=== PATIENT | male | born 1985 | race Caucasian/White ===

== ENCOUNTER 2019-07-20 08:04 | Outpatient (CLI) | payer OTHER ==
--- NOTE | 2019-07-20 15:18 | MRI Report ---
Reason: WRIST EPL TENDONITIS Procedure Date: 07/20/2019 Accession Number: [id number] / [id number] Procedure: MRI - Wrist RT W/O CPT Code: Final Report FULL RESULT: EXAM: RIGHT WRIST MRI WITHOUT CONTRAST. EXAM DATE: 07/20/2019 09:12 AM. CLINICAL HISTORY: Extensor pollicis longus wrist tendinitis. Pain for 6 months. COMPARISON: None. TECHNIQUE: Multiplanar, multisequence T1-weighted and fluid-sensitive sequences of the wrist without contrast. Other: None. FINDINGS: Bones: No fractures. Mild edema is in Sadia's tubercle in the distal radius. Marrow edema is in the radial side of the distal scaphoid. There is a cyst in the capitate. Cartilage: The articular cartilage is unremarkable. The triangular fibrocartilage complex is unremarkable. Ligaments: The scapholunate and lunotriquetral ligaments are intact. The visualized other intrinsic, extrinsic and collateral ligaments are unremarkable. Tendons: A longitudinal split tear of the extensor carpi ulnaris tendon at the ulnar styloid can be seen on series 401, image 15. Extensor pollicis longus tendon has multifocal longitudinal split tearing near the Sadia's tubercle (series 501, image 10). The tendon is thickened distal to Sadia's tubercle and has increased T2 signal within it. There is a moderate amount of fluid within its tendon sheath. A small amount of fluid is also in the extensor compartment 2 and 4 tendon sheaths. The other visualized flexor and extensor tendons are unremarkable. Musculature: No edema or fatty atrophy. Other: The contents of the carpal tunnel, including the median nerve, are unremarkable. Guyons canal is unremarkable. No ganglion cysts. No joint effusions. The subcutaneous tissues are unremarkable. IMPRESSION: 1. Severe tendinosis, multifocal longitudinal split tearing, and moderate tenosynovitis of the extensor pollicis longus tendon. There is reactive marrow edema in the adjacent Sadia's tubercle. 2. Longitudinal split tear of the extensor carpi ulnaris tendon. 3. Mild tenosynovitis of the extensor compartment 2 and 4 tendon sheaths. RADIA
== END 2019-07-20 08:05 | disposition home or self-care (01) ==
LOC: DI 08:04
PROVIDERS: ATTEND Orthopaedic Surgery
DX: S66.811A Strain of other specified muscles, fascia and tendons at wrist and hand level, right hand, initial encounter (principal); M65.88 Other synovitis and tenosynovitis, other site

== ENCOUNTER 2019-09-10 07:47 | Day surgery (SDC) | payer OTHER ==
[~2019-09-10 07:47] MED LIST: BUPIVACAINE 0.25% PF 30 ML VIAL ONE
[2019-09-10] MEDS ORDERED: LACTATED RINGERS 1,000 ML IV ONE ×2 (07:52→11:53)
[2019-09-10] MEDS ORDERED: CEFAZOLIN SODIUM IN 0.9 % NACL 2 GM/100 ML BAG IV ONE (08:05)
[2019-09-10] MEDS ORDERED: BUPIVACAINE 0.25% PF 30 ML VIAL ONE (09:03)
--- NOTE | 2019-09-10 09:16 | ANESTHESIA ---
Pre-Anesthesia VS, & Labs - Diagnosis R EPL tendinosis - Procedure R extensor pollicis longus release Vital Signs: Temp Pulse Resp BP Pulse Ox 36.6 C 78 12 140/86 H 98 09/10/19 07:52 09/10/19 07:52 09/10/19 07:52 09/10/19 07:52 09/10/19 07:52 Height 5 ft 9 in Weight (kg) 82.1 kg - NPO >8 hours Last Fluid Intake: sips H20 0600 Home Medications and Allergies Home Medications: Ambulatory Orders Ascorbic Acid [Vitamin C] 500 mg PO DAILY 08/31/19 Turmeric 400 mg PO DAILY 08/31/19 Yeast,Dried (S. Cerevisiae) [Glass's Yeast] 680 mg PO DAILY 08/31/19 Ascorbic Acid [Vitamin C] 500 mg PO DAILY 08/31/19 Turmeric 400 mg PO DAILY 08/31/19 Yeast,Dried (S. Cerevisiae) [Glass's Yeast] 680 mg PO DAILY 08/31/19 Allergies/Adverse Reactions: Allergies Allergy/AdvReac Type Severity Reaction Status Date / Time No Known Drug Allergies Allergy Verified 08/31/19 09:05 Anes History & Medical History - Anesthetic History Anesthesia Complications: reports: No previous complications (no previous surgery) Family history of Anesthesia Complications: Denies Family history of Malignant Hyperthermia: Denies - Medical History Cardiovascular: reports: None, Hypertension (remote hx, no meds, resolved) Pulmonary: reports: Sleep apnea, CPAP use Gastrointestinal: reports: None Urinary: reports: None Musculoskeletal: reports: Other Endocrine/Autoimmune: reports: None Skin: reports: None Psychosocial: reports: Alcohol Exam General: Alert, Oriented x3, Cooperative Dental: WNL Mouth Openin Fingerbreadth Neck Mobility: Normal Mallampati classification: II Thyromental Distance: greater than 6 cm Respiratory: Lungs clear, Normal breath sounds, No respiratory distress Cardiovascular: Regular rate Mental/Cognitive Status: Alert/Oriented X3, Normal for patient Cognitive Status: Within normal limits Plan Anesthesia Type: General Consent for Procedure(s) Verified and Reviewed: Yes Code Status: Attempt Resuscitation ASA classification: 2-Mild systemic disease Is this case an emergency?: No
[2019-09-10] MEDS ORDERED: PROPOFOL 200 MG/20 ML VIAL IVP ONE (09:47)
[2019-09-10] MEDS ORDERED: ACETAMINOPHEN 1,000 MG/100 ML 100 ML IV ONE (09:47)
[2019-09-10] MEDS ORDERED: MIDAZOLAM 2 MG/2 ML VIAL IVP ONE (09:47)
[2019-09-10] MEDS ORDERED: fentaNYL 100 MCG/2 ML VIAL IVP ONE (09:47)
[2019-09-10] MEDS ORDERED: LIDOCAINE-MPF 2% 5 ML VIAL IM ONE (09:47)
[2019-09-10] MEDS ORDERED: DEXAMETHASONE 4 MG/ML VIAL IVP ONE (09:47)
[2019-09-10] MEDS ORDERED: ONDANSETRON 4 MG/2 ML VIAL IVP ONE (09:47)
[2019-09-10] MEDS ORDERED: BUPIVACAINE 0.25% PF 30 ML VIAL SUBQ ONE (10:35)
[2019-09-10] MEDS ORDERED: oxyCODONE 5 MG TABLET PO PRN (11:05)
[2019-09-10] MEDS ORDERED: ONDANSETRON 4 MG/2 ML VIAL IVP PRN (11:05)
--- NOTE | 2019-09-10 11:12 | OPERATIVE REPORT ---
Operative Report - Other Other Information/Narrative: Date of Surgery: 10 September 2019 Pre-Op Diagnosis: Right extensor pollicis longus tendinosis with partial tears Procedure: Right extensor pollicis longus decompression with transposition Postop Diagnosis: Same Primary Surgeon: Reilly Lacy Secondary Surgeon: None Complications: None Tourniquet Time: 38 minutes EBL: 5 cc Implants: None Postoperative Protocol: Full range of motion of the thumb and wrist immediately. No firm gripping for 2 weeks. No weapons duty for 6 weeks. 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 Surgery was indicated to prevent tendon rupture and allow for symptom improvement. The risks, benefits, and alternatives were discussed. Risks include pain, bleeding, infection, damage to nearby structures, numbness, lack of symptom relief, implant complications, nonunion, need for further surgery, DVT, PE, stroke, and . Written consent was obtained. Procedure in Detail: The patient was met in the pre-operative hold area on the day of the procedure. The operative extremity was signed and questions were answered. The patient was brought to the operating room and a general anesthe tic was administered. Supine position was used and all bony prominences were padded. Standard prepping and draping was performed. A time out confirmed patient identification, laterality, procedure, allergies, antibiotics, and images. An Esmarch was used to exsanguinate the limb and the tourniquet was elevated to 250 mmHg. A 5 cm incision was made over the course of the extensor pollicis longus. Bipolar was used to obtain hemostasis. Blunt dissection was used looking for branches of the superficial branch of the radial nerve. No branches were seen. Veins were protected. The extensor retinaculum was identified and I opened the fourth compartment to show no significant tendinitis or tendinosis. I then opened to the third compartment and found extensor pollicis longus to be thickened and partially tore at Sadia's tubercle. I then released the fascia proximally to allow for good transposition and released it distally. EPL was then brought out from behind the third and was tension free. I then irrigated copiously and closed the extensor retinaculum over the fourth. I then closed the third compartment as well to prevent EPL from finding its way back behind Sadia's tubercle. Excess tissue was debrided. The incision was closed with 2-0 Vicryl in the dermis and running Monocryl in the skin. Mastisol and Steri-Strips were applied. 20 cc of local anesthetic was placed around the incision.
[2019-09-10] MEDS: HYDROmorphone 0.5 MG/0.5 ML SYRINGE ONE ×2 (11:19→11:35)
[2019-09-10] MEDS ORDERED: HYDROmorphone 0.5 MG/0.5 ML SYRINGE ONE (11:37)
[2019-09-10] MEDS ORDERED: oxyCODONE 5 MG TABLET ONE (12:03)
[2019-09-10 12:09] VITALS: BP 124/81
== END 2019-09-10 07:48 | disposition home or self-care (01) ==
LOC: SDS 07:47
PROVIDERS: ATTEND Orthopaedic Surgery
PROC: 0LX50ZZ Transfer Right Lower Arm and Wrist Tendon, Open Approach (ICD-10-PCS; principal; 2019-09-10 09:15)
DX: S56.511A Strain of other extensor muscle, fascia and tendon at forearm level, right arm, initial encounter (principal); X58.XXXA Exposure to other specified factors, initial encounter; G47.30 Sleep apnea, unspecified